=== PATIENT | male | born 1950 | race Caucasian/White ===

== ENCOUNTER 2025-08-11 16:56 | Emergency (ER) | payer SELFPAY ==
[2025-08-11] VITALS (7 sets, daily range): BP systolic 118–154; BP diastolic 71–83; BMI 28.9
[2025-08-11 17:37] LABS: Hematocrit 33.4 % (39.0-52.0); Hemoglobin 12.5 g/dL (13.0-18.0); Mean Corp Hgb Conc. 37.4 g/dL (33.0-37.0); Mean Corpuscular Volume 89.5 fL (80.0-94.0); Nucleated Red Blood Cells % 0 % (-); Platelet Count 372 10^3/uL (130-400); Red Cell Dist. Width 11.8 % (11.5-14.5)
[2025-08-11 17:58] LABS: ALT (SGPT) 26 U/L (0-50); AST (SGOT) 30 U/L (17-59); Albumin 4.2 g/dl (3.5-5.0); Alkaline Phosphatase 69 U/L (38-126); Blood Urea Nitrogen 26 mg/dl (9-20); Calcium 10.0 mg/dl (8.4-10.2); Carbon Dioxide 25 mmol/L (22-30); Chloride 91 mmol/L (98-107); Glucose 167 mg/dl (70-99); Potassium 3.2 mmol/L (3.5-5.1); Sodium 126 mmol/L (135-145); Total Protein 7.0 g/dl (6.3-8.2); eGFR 52.74
[2025-08-11 18:11] LABS: Troponin I 0.061 ng/ml
--- NOTE | 2025-08-11 21:58 | ED.GENMED ---
History of Present Illness
General
Chief Complaint: Male Genito-Urinary Symptoms
Source: patient
Exam Limitations: none
Time Seen by Provider: 08/11/25 19:20
History of Present Illness
History of Present Illness:
Note:
CHIEF COMPLAINT(S)
Recent Vomiting and abdominal bruising.
HISTORY OF PRESENT ILLNESS
The patient is a 74-year-old male with a known history of an abdominal aortic aneurysm and hypertension, presenting after he was noted to have bruising of his lower abdomen. He reports a recent hospitalization where a series of tests, including
multiple imaging studies were conducted, but a clear diagnosis was not established. The patient recalls being prescribed a new medication during this time, which led to fatigue and anorexia for the initial three days. Subsequently today, he noticed
purplish discoloration on his abdomen and sought evaluation at a medical center where he was reassured about the discoloration, though he remains concerned about the potential worsening of his abdominal aortic aneurysm, particularly with episodes of
elevated blood pressure. Despite this, a recent CAT scan report did not mention the aneurysm. There is no record or evidence of recent growth of the aneurysm on imaging.
PAST MEDICAL AND SURGICAL HISTORY
The patient references a known abdominal aortic aneurysm, hypertension
CHRONIC MEDICAL CONDITIONS SIGNIFICANTLY AFFECTING CARE
Abdominal aortic aneurysm
Hypertension
EXTERNAL RECORDS REVIEWED
The patient had a computed tomography scan performed around 10 days prior to this visit, which identified inflammation surrounding the gallbladder. There was no comment on the status of the aorta or any aneurysmal changes in the report.
MEDICATIONS
The patient is on continuous blood thinners.
REVIEW OF SYSTEMS
- Gastrointestinal: Episodes of severe vomiting, pressure in the chest associated with abdominal discomfort, presence of a purplish bruise on the stomach.
- Cardiovascular: Reports of persistent high blood pressure; no new palpable mass felt in the abdominal region during examination.
- Integumentary: Notable purple discoloration/bruise on the lower abdomen.
PHYSICAL EXAM
General: Alert, no acute distress.
Skin: Evidence of ecchymosis on the lower abdomen, particularly on the right side, extending to the suprapubic region; at various stages of healing. Ecchymosis also extends to the penis.
Abdomen: No palpable pulsatile masses. Non-tender during palpation, and no indication of acute abdomen.
Extremities: Warm and well-perfused. No edema
No respiratory distress
Nonfocal neurologic assessment
Awake alert and oriented
PLAN
A repeat scan of the abdomen is warranted to evaluate the current status of the abdominal aorta and any changes that may affect the aneurysm case management. Close monitoring of blood pressure is also necessary given the potential exacerbating
effect on the aneurysm. The patient is advised to return if symptoms of acute pain, changes in consciousness, or further extension of bruising occur.
DIFFERENTIAL DIAGNOSIS
The Differential Diagnosis includes, in no particular order and is not limited to:
1. Abdominal aortic aneurysm rupture or expansion
2. Gastroesophageal reflux disease
3. Peptic ulcer disease
4. Gallbladder disease (e.g., cholecystitis)
5. Pancreatitis
6. Gastritis
7. Bowel obstruction
8. Myocardial infarction
9. Hypertensive emergency
10. Medication side effects
Disposition:
SUMMARY OF ENCOUNTER
The patient is a 74-year-old male presenting with ecchymosis on his lower abdomen. He is currently on apixaban and has a history of an abdominal aortic aneurysm (AAA). The patient reports a recent gastrointestinal illness characterized by severe
vomiting. Imaging from a previous hospital admission shows a hematoma involving the rectus abdominis muscle and right anterior pelvic wall, with no evidence of aneurysm expansion. The patient was offered admission due to being on anticoagulant
therapy; however, he opted for outpatient monitoring, citing a recent hospitalization and a preference for being cared for at home. Laboratory results reveal mild leukocytosis and electrolyte imbalances including hyponatremia and hypokalemia. Mild
troponin bump noted but no chest pain or other ACS signs or symptoms.
DISPOSITION
The patient was discharged with outpatient follow-up.
ASSESSMENT
The ecchymosis is likely due to a rectus sheath hematoma, exacerbated by vomiting and anticoagulation treatment. There is no current evidence of expanding hematoma or aneurysm. Lab results and imaging are consistent with dehydration from recent
vomiting.
PLAN
The plan includes close outpatient monitoring with repeat labs in 3 to 5 days to reassess electrolyte levels. Potassium will be supplemented. The patient is advised to return immediately if symptoms worsen, including abdominal pain or further
expansion of bruising.
INDEPENDENT REVIEW OF LABS AND INTERPRETATION OF TESTS
My independent review of the labs shows mild leukocytosis with a white blood cell count of 11.1, hyponatremia with sodium at 126 mEq/L, hypokalemia with potassium at 3.2 mEq/L, and chloride low at 91 mEq/L.
PATIENT EDUCATION AND COUNSELING
The patient was counseled on the signs and symptoms that would necessitate immediate medical attention, especially changes in abdominal discomfort or expansion of bruising. He was also informed about the need for follow-up labs to ensure
normalization of electrolyte levels.
FOLLOW-UP INSTRUCTIONS
The patient was instructed to follow up with his primary care provider in 3 to 5 days for repeat bloodwork and further evaluation.
MEDICATION RECONCILIATION
Potassium supplementation was initiated to correct hypokalemia.
MEDICAL DECISION MAKING
Chronic conditions affecting care include an abdominal aortic aneurysm and electrolyte imbalances. Potential diagnoses considered were gastrointestinal bleed, electrolyte disturbance due to dehydration, and rectus sheath hematoma due to
anticoagulation therapy.
-Data:
Category 1
Reviewed external records, including recent discharge summary and primary care physician notes.
Laboratory tests reviewed, showing electrolyte imbalances and mild leukocytosis.
Category 3
Consulted with the patient about the management options, emphasizing the importance of monitoring and potential risks of anticoagulation.
DIAGNOSIS
Rectus sheath hematoma (ICD-10-CM S31.820A)
Electrolyte imbalance (ICD-10-CM E87.9)
Hyponatremia (ICD-10-CM E87.1)
Phy Exam
Physical Exam
Physical Exam:
.
Course
Orders/Labs/Results
Orders:
Orders
08/11/25 17:06
Electrocardiogram (*1) Urgent
Reason for Study: Chest Pain
EKG- Treatment ONCE
08/11/25 17:25
Type And Crossmatch [Type+Screen] Urgent
Complete Blood Count/With Diff Urgent
Comprehensive Metabolic Panel Urgent
Troponin I Urgent
08/11/25 19:36
CT Abd/pelvis W Iv Cont Urgent
Comment:
Reason For Exam: abd ecchymosis, h/o AAA
08/11/25 21:57
Potassium Chloride 10% Elixir [KCl Elixir] 40 meq PO NOW STA
Abnormal Lab Results
08/11/25
17:25
WBC 11.6 H 10^3/uL
(4.8-10.8)
RBC 3.73 L 10^6/uL
(4.70-6.10)
Hgb 12.5 L g/dL
(13.0-18.0)
Hct 33.4 L %
(39.0-52.0)
MCH 33.5 H pg
(27.0-31.0)
MCHC 37.4 H g/dL
(33.0-37.0)
Abs Immat Gran (auto) 0.1 H 10^3/uL
(0-0.05)
Absolute Neuts (auto) 7.8 H 10^3/uL
(1.4-6.5)
Absolute Monos (auto) 1.2 H 10^3/uL
(0.1-0.6)
Monocytes % 10.4 H %
(1.7-9.3)
Sodium 126 L mmol/L
(135-145)
Potassium 3.2 L mmol/L
(3.5-5.1)
Chloride 91 L mmol/L
(98-107)
BUN 26 H mg/dl
(9-20)
Creatinine 1.4 H mg/dL
(0.7-1.3)
Glucose 167 H mg/dl
(70-99)
Total Bilirubin 1.7 H mg/dl
(0.2-1.3)
Troponin I 0.061 H* ng/ml
08/11/25 17:25
08/11/25 17:25
Vital Signs
Initial and Last Documented VS:
Initial Vital Signs
Temp Pulse Resp BP Pulse Ox
98.2 F 92 20 118/73 99
08/11/25 16:58 08/11/25 16:58 08/11/25 16:58 08/11/25 16:58 08/11/25 16:58
Last Documented Vital Signs
Temp Pulse Resp BP Pulse Ox
98.2 F 108 13 136/76 98
08/11/25 16:58 08/11/25 22:00 08/11/25 22:00 08/11/25 22:00 08/11/25 21:58
*Pulse Oximetry
SaO2: 98
Oxygen Mode of Delivery: Room air
Patient hypoxic: no
*Critical Care Note
Total Time (30-74mins, 75-104mins- exclusive of procedures): Not Applicable
ED Attending Note
-
Portions of this chart may have been created with voice recognition software.� Occasional wrong word or��sound alike� substitutions may have occurred due to the inherent limitations of voice recognition software.
Discharge Plan
Departure
Patient Disposition: Home (Routine Discharge)
Date of Disposition: 08/11/25
Time of Disposition: 22:20
Patient with high blood pressure during this ER visit?: Yes
Discharge Problem:
Hematoma of abdominal wall, Hyponatremia, Hypokalemia
Instructions: BLOOD PRESSURE, Hematoma
Referrals:
NONE,* [Family Provider, Internal Medicine]
Activity Restrictions/Additional Instructions:
Low potassium, low sodium
Please have your labs repeated in the next 3 to 5 days. Please drink plenty of fluids. Please return immediately for any distention of your abdominal wall, pain in the abdomen, shortness of breath, chest pain, weakness or any other concerns.
Please hold your Eliquis tonight and tomorrow. Please see your doctor tomorrow for follow-up and reevaluation.
Interventions
Interventions:
*Risk Screen - Suicide Last Done: 08/11/25 16:58
*General Assessment Last Done: 08/11/25 19:18
*Neglect/Abuse Screening Last Done: 08/11/25 16:58
*ED COVID-19 Vaccine History Last Done: 08/11/25 19:18
*ED Influenza Vaccine History Last Done: 08/11/25 19:18
[facility] Fall Risk Assessment Tool Last Done: 08/11/25 19:19
ED-Male Genitourinary Assessment Last Done: 08/11/25 19:17
Discharge Date and Time
Print Language: OCCITAN
[2025-08-11] MEDS: KCL ELIXIR 40 MEQ PO (22:18)
== END 2025-08-11 22:57 | disposition home or self-care (01) ==
LOC: EMR 16:56
PROVIDERS: EMERGENCY PHYSICIAN Emergency Medicine
DX: S30.11XA Contusion of abdominal wall, initial encounter (principal); X58.XXXA Exposure to other specified factors, initial encounter; E87.1 Hypo-osmolality and hyponatremia; E87.6 Hypokalemia; D72.829 Elevated white blood cell count, unspecified; I10 Essential (primary) hypertension; I71.43 Infrarenal abdominal aortic aneurysm, without rupture; Z79.01 Long term (current) use of anticoagulants
CPT/HCPCS: 99284; 74177; 80053; 84484; 85025; 86850; 86900; 86901; 93005; Q9967

== ENCOUNTER 2025-08-19 20:19 | Observation (INO) | payer MEDICARE, SELFPAY ==
[2025-08-19] VITALS (12 sets, daily range): BP systolic 99–131; BP diastolic 62–94; BMI 29.3
[2025-08-19 16:57] LABS: Hematocrit 33.4 % (39.0-52.0); Hemoglobin 12.0 g/dL (13.0-18.0); Mean Corp Hgb Conc. 35.9 g/dL (33.0-37.0); Mean Corpuscular Volume 91.5 fL (80.0-94.0); Nucleated Red Blood Cells % 0 % (-); Platelet Count 295 10^3/uL (130-400); Red Cell Dist. Width 12.8 % (11.5-14.5)
[2025-08-19 17:05] LABS: ALT (SGPT) 21 U/L (0-50); AST (SGOT) 27 U/L (17-59); Albumin 3.8 g/dl (3.5-5.0); Alkaline Phosphatase 60 U/L (38-126); Blood Urea Nitrogen 14 mg/dl (9-20); Calcium 9.4 mg/dl (8.4-10.2); Carbon Dioxide 26 mmol/L (22-30); Chloride 96 mmol/L (98-107); Glucose 118 mg/dl (70-99); INR 1.41; PT 17.4 Sec (11.4-14.6); Potassium 3.4 mmol/L (3.5-5.1); Sodium 131 mmol/L (135-145); Total Protein 6.5 g/dl (6.3-8.2); eGFR > 60.00
[2025-08-19 17:26] LABS: Troponin I 0.038 ng/ml
--- NOTE | 2025-08-19 18:28 | ED.GENMED ---
History of Present Illness
<Cordell Mazariegos DO, Resident - Last Filed: 08/19/25 19:55>
General
Chief Complaint: Abnormal Lab Value
Source: patient
Exam Limitations: none
Time Seen by Provider: 08/19/25 17:50
Nursing documentation reviewed up to this point in time: agreed with
History of Present Illness
History of Present Illness:
Lonnie Juarez is a 74M w/ PMHx of 3.0cm AAA, HTN, MDD, HLD, atrial fibrillation and a recent ED visit where he was diagnosed with a rectus abdominus hematoma who is presenting in the setting of an abnormal lab value.
Patient states that over the past couple of weeks he had been feeling dizzy and lightheaded. 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 Patient states that after that
dosage change, he has felt much better. At the instructional technology coach appointment, blood was drawn and sent. Patient was called earlier today and told that he had an elevated 'enzyme' and was told to go to the emergency department. Patient denies any acute
complaints at this time prompting his ED visit. Particular, he denies chest pain, shortness of breath, palpitations, headache, dizziness, lower extremity edema.
Review of Systems
<Cordell Mazariegos DO, Resident - Last Filed: 08/19/25 19:55>
Review of Systems
Allergies reviewed?: Yes
All Other Systems: ROS reviewed and negative except as documented in HPI and ROS
Phy Exam
<Cordell Mazariegos DO, Resident - Last Filed: 08/19/25 19:55>
Physical Exam
Physical Exam:
General: Well appearing male, in no acute distress.
HEENT: Normocephalic, atraumatic, EOMI
CV: regular rhythm, regular rate, AI, no JVD
Respiratory: Clear to auscultation bilaterally, no wheezing, no rales, no rhonchi
Abdomen: soft, nondistended
MSK: no clubbing, no cyanosis, no edema
Neuro: AAO X3, moving all fours
Psych: calm, normal affect
Scores
<Cordell Mazariegos DO, Resident - Last Filed: 08/19/25 19:55>
Heart Failure Risk
Heart Failure Risk Score: Not Applicable
Heart Score for Chest Pain Patients
STEMI patient?: Not applicable
Withdrawal Assessment of Alcohol
Withdrawal Assessment Completed?: Not applicable
Course
<Cordell Mazariegos DO, Resident - Last Filed: 08/19/25 19:55>
Orders/Labs/Results
Orders:
Orders
08/19/25 16:02
Electrocardiogram (*1) Urgent
Reason for Study: Chest Pain
EKG- Treatment ONCE
08/19/25 16:18
Complete Blood Count/With Diff Urgent
Comprehensive Metabolic Panel Urgent
Magnesium Urgent
Comment: ADD ON
Prothrombin Time Urgent
TSH Reflex To Free T4 Urgent
Comment: ADD ON
Troponin I Urgent
08/19/25 18:45
Add On- LAB Urgent
Tests Added?: magnesium, TSH reflex Free T4
Abnormal Lab Results
08/19/25
16:18
RBC 3.65 L 10^6/uL
(4.70-6.10)
Hgb 12.0 L g/dL
(13.0-18.0)
Hct 33.4 L %
(39.0-52.0)
MCH 32.9 H pg
(27.0-31.0)
Absolute Monos (auto) 1.1 H 10^3/uL
(0.1-0.6)
Monocytes % 17.7 H %
(1.7-9.3)
PT 17.4 H Sec
(11.4-14.6)
Sodium 131 L mmol/L
(135-145)
Potassium 3.4 L mmol/L
(3.5-5.1)
Chloride 96 L mmol/L
(98-107)
Glucose 118 H mg/dl
(70-99)
Troponin I 0.038 H* ng/ml
08/19/25 16:18
08/19/25 16:18
Vital Signs
Initial and Last Documented VS:
Initial Vital Signs
Temp Pulse Resp BP Pulse Ox
97.7 F 87 20 99/62 98
08/19/25 15:56 08/19/25 15:56 08/19/25 15:56 08/19/25 15:56 08/19/25 15:56
Last Documented Vital Signs
Temp Pulse Resp BP Pulse Ox
98.3 F 82 18 116/64 99
08/19/25 18:29 08/19/25 19:00 08/19/25 18:29 08/19/25 19:00 08/19/25 18:50
<Parminder Burgess, DO - Last Filed: 08/19/25 18:46>
Orders/Labs/Results
Orders:
Orders
08/19/25 16:02
Electrocardiogram (*1) Urgent
Reason for Study: Chest Pain
EKG- Treatment ONCE
08/19/25 16:18
Complete Blood Count/With Diff Urgent
Comprehensive Metabolic Panel Urgent
Magnesium Urgent
Comment: ADD ON
Prothrombin Time Urgent
TSH Reflex To Free T4 Urgent
Comment: ADD ON
Troponin I Urgent
08/19/25 18:45
Add On- LAB Urgent
Tests Added?: magnesium, TSH reflex Free T4
Abnormal Lab Results
08/19/25
16:18
RBC 3.65 L 10^6/uL
(4.70-6.10)
Hgb 12.0 L g/dL
(13.0-18.0)
Hct 33.4 L %
(39.0-52.0)
MCH 32.9 H pg
(27.0-31.0)
Absolute Monos (auto) 1.1 H 10^3/uL
(0.1-0.6)
Monocytes % 17.7 H %
(1.7-9.3)
PT 17.4 H Sec
(11.4-14.6)
Sodium 131 L mmol/L
(135-145)
Potassium 3.4 L mmol/L
(3.5-5.1)
Chloride 96 L mmol/L
(98-107)
Glucose 118 H mg/dl
(70-99)
Troponin I 0.038 H* ng/ml
08/19/25 16:18
08/19/25 16:18
Vital Signs
Initial and Last Documented VS:
Initial Vital Signs
Temp Pulse Resp BP Pulse Ox
97.7 F 87 20 99/62 98
08/19/25 15:56 08/19/25 15:56 08/19/25 15:56 08/19/25 15:56 08/19/25 15:56
Last Documented Vital Signs
Temp Pulse Resp BP Pulse Ox
98.3 F 82 18 116/64 99
08/19/25 18:29 08/19/25 19:00 08/19/25 18:29 08/19/25 19:00 08/19/25 18:50
<Cordell Mazariegos DO, Resident - Last Filed: 08/19/25 19:55>
MDM/Problems Addressed
Differential Diagnosis Includes:
ACS, nonischemic myocardial injury, valvular disease, arrhythmia
MDM/Problems Addressed:
74M PMHx 3.0cm AAA, HTN, MDD, HLD, atrial fibrillation and a recent ED visit where he was diagnosed with a rectus abdominis hematoma who presented for abnormal troponin as drawn in the outpatient setting. No acute complaints today. Physical exam
unremarkable. Vital signs stable. ECG unchanged from 08/11/2025. Multiple significant PVCs seen on monitor. Cardiology consulted, recommended admission to hospitalist and evaluation in AM. Maintain on home dose beta-meri. Potassium
repleted. Hospitalist notified.
<Cordell Mazariegos DO, Resident - Last Filed: 08/19/25 19:55>
*Pulse Oximetry
SaO2: 98
Oxygen Mode of Delivery: Room air
Patient hypoxic: no
*Critical Care Note
Total Time (30-74mins, 75-104mins- exclusive of procedures): Not Applicable
ED Attending Note
<Codrell Mazariegos DO, Resident - Last Filed: 08/19/25 19:55>
-
Portions of this chart may have been created with voice recognition software.� Occasional wrong word or��sound alike� substitutions may have occurred due to the inherent limitations of voice recognition software.
<Parminder Burgess, - Last Filed: 08/19/25 18:46>
ED Attending Note
Patient seen and examined by attending physician: Yes
I performed a history and physical exam of patient and discussed management with resident, I reviewed resident's note and agree with documented findings and plan of care.: Yes
ED Attending Note:
I have seen and evaluated the patient with a [id number] encounter. I have spoken to the resident and involved in the medical history, the physical exam, medical decision making.
Evaluation and management service: agree unless noted differently below.
Results interpretation: agree unless noted differently below.
Focused HPI: 74-year-old male presenting per request of his PCP. Patient states that outpatient blood work showed an elevated cardiac enzyme. Patient denies chest pain or shortness of breath
Physical exam: Sitting in bed comfortably. Abdominal bruising noted but this has been recently evaluated and described as a abdominal hematoma. Regular rate and rhythm
Medical Decision Making: While seen in bed, patient seems to have significant PVCs. It is concerning that his elevated troponin could be related to this and potentially sustained V. tach.
Discharge Plan
Departure
Patient Disposition: Admit
Date of Disposition: 08/19/25
Time of Disposition: 19:01
Admit to: Telemetry
Admit to doctor: Dr. Sarabia
Presentation/result/management discussed w/ accepting MD/DO: Hospitalist
Patient with high blood pressure during this ER visit?: No
Condition: Fair
Discharge Problem:
Elevated troponin, Asymptomatic PVCs
Prescriptions:
No Action
bupropion HCl [Wellbutrin XL] 150 mg Tablet Extended Release 24 Hr
150 mg PO DAILY
carvedilol [Coreg] 6.25 mg Tablet
6.25 mg PO BID
Theragen Tablet
1 tab PO DAILY
nifedipine [Nifediac CC] 30 mg Tablet Extended Release
30 mg PO DAILY
escitalopram oxalate [Lexapro] 20 mg Tablet
20 mg PO DAILY
rosuvastatin [Crestor] 20 mg Tablet
20 mg PO HS
omega 2-sdr-ifx-fish oil [Fish Oil] 1,000 (120-180) mg Capsule
1 cap PO DAILY
Eliquis 5 mg Tablet
5 mg PO BID
Ozempic 1 mg/dose (4 mg/3 mL) Pen Injector
1 mg SC SA@0800
Interventions
Interventions:
*General Assessment Last Done: 08/19/25 15:56
*Neglect/Abuse Screening Last Done: 08/19/25 15:56
*ED COVID-19 Vaccine History Last Done: 08/19/25 18:30
*ED Influenza Vaccine History Last Done: 08/19/25 18:30
[facility] Risk Assessment Tool Last Done: 08/19/25 18:29
*Risk Screen - Suicide (C-SSRS) Last Done: 08/19/25 18:51
Discharge Date and Time
Print Language: THAI
--- NOTE | 2025-08-19 18:35 | EDRN ---
this [employer] was speaking with this pt and noted the pt to have frequent PVCs and runs of PVCs. ER Dr Burgess was immediately notified of above and a rhythm strip was printed and shown to ER Dr Burgess. On rhythm strip the pt has approx 20 beat run of
monomorphic PVCs. this along with multiple other rhythm strips were printed and scanned into the pts chart. Repeat EKGs were obtained adn shown to Er dr Burgess who is at the pts bedside.
will continue to monitor this pt closely
[2025-08-19 19:03] LABS: Magnesium 1.8 mg/dl (1.6-2.3)
--- NOTE | 2025-08-19 19:10 | HPS.HSE ---
Family Physician
-
Family Physician: FELIX Crawford
Chief Complaint
-
abnormal out patient labs
History of Present Illness
Patient is a 74-year-old male with past medical history significant for hypertension, hyperlipidemia, chronic kidney disease IIIa, paroxysmal atrial fibrillation and depression/anxiety who presented to [facility] ED for evaluation of abnormal out patient
labs. Patient with recent hospitalization at [facility] 2 weeks ago for chest pressure and vomiting with no significant findings. Patient reports that he was at primary care for follow up from hospitalization was sent for lab work yesterday and was called
today to go to ED for evaluation and treatment. Patient denies any symptoms at this time.
Medical History
Past Medical History
Past Medical History: Reports Other
Additional Past Medical History:
hypertension
hyperlipidemia
chronic kidney disease IIIa
paroxysmal atrial fibrillation
depression/anxiety
abdominal aortic aneurysm
Past Surgical History: Reports Other
Additional Past Surgical History:
cardiac cath with PCI
Social History
Tobacco: Former Smoker (43 pack year history, quit 15 years ago)
Alcohol: Occasional
Drug: Marijuana (occasional gummies )
Personal:
Living: Alone
Family History
Family History: Not pertinent
Allergies / Home Medications
Allergies reflects when Allergies were last updated in [employer].
Home Medications with original date entered in [employer]
Allergy/Medication List:
Allergies
Allergy/AdvReac Type Severity Reaction Status Date / Time
Sulfa (Sulfonamide Allergy Unknown Verified 08/19/25 18:27
Antibiotics)
Home Medications
apixaban 5 mg tablet (Eliquis) 5 mg PO BID Blood Clot Prevention/Tx 08/19/25
bupropion HCl 150 mg 24 hr tablet, extended release (Wellbutrin XL) 150 mg PO DAILY Mental Health/Anxiety 08/19/25
carvedilol 6.25 mg tablet (Coreg) 6.25 mg PO BID Heart Disease/Condition 08/19/25
escitalopram oxalate 20 mg tablet (Lexapro) 20 mg PO DAILY Mental Health/Anxiety 08/19/25
nifedipine 30 mg tablet,extended release 30 mg PO DAILY Blood Pressure 08/19/25
omega 2-hpr-gsp-fish oil 1,000 mg (120 mg-180 mg) capsule (Fish Oil) 1 cap PO DAILY Supplement 08/19/25
rosuvastatin 20 mg tablet (Crestor) 20 mg PO HS High Cholesterol 08/19/25
semaglutide 1 mg/dose (4 mg/3 mL) subcutaneous pen injector (Ozempic) 1 mg SC SA@0800 Diabetes 08/19/25
therapeutic multivitamin 1 tab PO DAILY Supplement 08/19/25
Review of Systems
-
History Source: Patient
Constitutional: Reports No Symptoms
EENT: Reports No Symptoms
Respiratory: Reports No Symptoms
Cardiac: Reports No Symptoms
Abdomen/GI: Reports No Symptoms
: Reports No Symptoms
Musculoskeletal: Reports No Symptoms
Skin: Reports No Symptoms
Neurological: Reports No Symptoms
Endocrine: Reports No Symptoms
Hematologic/Lymphatic: Reports No Symptoms
Psych: Reports No Symptoms
Physical Exam
Vital Signs
Vital Signs
Temp Pulse Resp BP Pulse Ox
98.3 F 82 18 116/64 99
08/19/25 18:29 08/19/25 19:00 08/19/25 18:29 08/19/25 19:00 08/19/25 18:50
Physical Exam
General: Well Developed, Well Nourished, No Apparent Distress, Comfortable, Conversant and Obese
HEENT: NormoCephalic, Moist mucous membranes, PERRLA, Nose Appears Normal, Ears Appear Normal and Hearing Impaired
Respiratory: Clear and Non Labored Respirations; No Wheezes, Rales or Rhonchi
Cardiac: S1/S2, Regular Rhythm, Murmur and Peripheral Edema (trace BLLE ); No Rub or Gallop
GI: Soft, Non Tender, Non Distended and Normal Bowel Sounds
Musculoskeletal: No Clubbing and No Cyanosis
Skin: Warm and IV/Catheter Site
Neuro: Awake and AO x 3
Psych: Calm and Intact Judgment/Insight
Laboratory Results
-
08/19/25 16:18
08/19/25 16:18
Laboratory Results
PT 17.4 Sec (11.4-14.6) H 08/19/25 16:18
INR 1.41 08/19/25 16:18
Total Bilirubin 0.8 mg/dl (0.2-1.3) 08/19/25 16:18
AST 27 U/L (17-59) 08/19/25 16:18
ALT 21 U/L (0-50) 08/19/25 16:18
Alkaline Phosphatase 60 U/L (38-126) 08/19/25 16:18
Troponin I 0.038 ng/ml H* 08/19/25 16:18
Data Reviewed
-
Medical Tests (Nuc Med, Echo, EKG etc): Report Reviewed by me (EKG: NORMAL SINUS RHYTHM SEPTAL INFARCT (CITED ON OR BEFORE 11-Aug-2025) ST and T WAVE ABNORMALITY, CONSIDER ANTEROLATERAL ISCHEMIA)
Lab Data: Labs Reviewed by me (Na+ 131, K+ 3.4, trop 0.038)
Impression/Plan
-
IMPRESSION/PLAN:
#abnormal out patient troponin
patient with recent hospitalization at [facility], follow up with primary who had lab work completed and elevated troponin returned
trop 0.038
EKG: NORMAL SINUS RHYTHM
SEPTAL INFARCT (CITED ON OR BEFORE 11-Aug-2025)
ST and T WAVE ABNORMALITY, CONSIDER ANTEROLATERAL ISCHEMIA
- Admit to telemetry for observation
- Consult Cardiology
- plan for stress test Friday
- trend troponin
- ECHO
#hypokalemia
K+ 3.4
- repleted in ED
- monitor BMP
#hypertension
- continue nifedipine
#hyperlipidemia
- continue rosuvastatin
#chronic kidney disease IIIa
BUN 14, creat 1.2, eGFR >60.00
stable
- monitor BMP
#paroxysmal atrial fibrillation
- continue Eliquis and carvedilol
#depression/anxiety
- continue escitalopram
#obesity
- continue semaglutide out patient
- encourage balanced diet and exercise to promote weight loss
#abdominal aortic aneurysm
measure 3.0 cm on recent abdominal CT
Code status: DNR
DVT prophylaxis: Eliquis
--- NOTE | 2025-08-19 19:34 | CON.CAR ---
Consultation
Consultation Request
Date/Time Consultation Requested: 08/19/25
Date/Time Consultation Performed: 08/19/2025
Requesting Provider: Dr. Mazariegos
Performing Provider: Dr. Byrne
Reason for Consultation: Elevated troponin, PVCs
Medical History
-
Chief Complaint: Abnormal troponin
History of Present Illness:
74-year-old male (primarily known to Dr. Goldberg at [facility]) with coronary artery disease status-post PCI (approximately 2 years ago, per patient), paroxysmal atrial fibrillation (on Eliquis), hypertension, hyperlipidemia, diabetes, AAA,
anxiety/depression, obesity, and former smoking history (43 pack years; quit in 2009) referred to the ER for abnormal troponin which was drawn in the outpatient setting. The patient denies any chest pain, shortness of breath, or palpitations.
Cardiology was consulted for frequent PVCs on telemetry. The patient denies any history of heart failure, but states that his primary Patient Service Coordinator was planning to do an outpatient stress test in the near future due to PVCs. The patient mentions
that his dose of nifedipine was decreased from 60 mg to 30 mg 2 days ago due to symptomatic hypotension. Of note, the patient presented to the hospital approximately 2 weeks ago with a rectus hematoma which was thought to be iatrogenic secondary to
an abdominal ultrasound, likely for his AAA.
Past Medical History
Past Medical History: Arrhythmias (PVCs), CAD (PCI 2 years ago), HTN, Hypercholesterolemia and NIDDM
Past Surgical History: Appendectomy and Cardiac (PCI)
Social History
Tobacco: Former Smoker (Quit 2009; 43 pack years)
Alcohol: Occasional
Drug: Marijuana (CBD Gummies)
Personal:
Living: With Family
Employment: Retired
Family History
Family History: Reviewed & Not Pertinent
Allergies / Home Medications
Allergy/AdvReac Type Severity Reaction Status Date / Time
Sulfa (Sulfonamide Allergy Unknown Verified 08/19/25 18:27
Antibiotics)
�Medication �Instructions �Recorded �Confirmed �Type
apixaban 5 mg tablet (Eliquis) 5 mg PO BID Blood Clot 08/19/25 08/19/25 History
Prevention/Tx
bupropion HCl 150 mg 24 hr tablet, 150 mg PO DAILY Mental 08/19/25 08/19/25 History
extended release (Wellbutrin XL) Health/Anxiety
carvedilol 6.25 mg tablet (Coreg) 6.25 mg PO BID Heart 08/19/25 08/19/25 History
Disease/Condition
escitalopram oxalate 20 mg tablet 20 mg PO DAILY Mental 08/19/25 08/19/25 History
(Lexapro) Health/Anxiety
nifedipine 30 mg tablet,extended 30 mg PO DAILY Blood Pressure 08/19/25 08/19/25 History
release
omega 7-vjc-veg-fish oil 1,000 mg 1 cap PO DAILY Supplement 08/19/25 08/19/25 History
(120 mg-180 mg) capsule (Fish Oil)
rosuvastatin 20 mg tablet (Crestor) 20 mg PO HS High Cholesterol 08/19/25 08/19/25 History
semaglutide 1 mg/dose (4 mg/3 mL) 1 mg SC SA@0800 Diabetes 08/19/25 08/19/25 History
subcutaneous pen injector (Ozempic)
therapeutic multivitamin 1 tab PO DAILY Supplement 08/19/25 08/19/25 History
Review of Systems
-
History Source: Patient
All other systems: Negative unless noted
Physical Exam
Vital Signs
Temp Pulse Resp BP Pulse Ox
98.3 F 82 18 116/64 99
08/19/25 18:29 08/19/25 19:00 08/19/25 18:29 08/19/25 19:00 08/19/25 18:50
Lab Results
08/19/25 16:18
08/19/25 16:18
Troponin I 0.038 ng/ml H* 08/19/25 16:18
Physical Exam
General: No Apparent Distress and Comfortable
HEENT: Anicteric
Respiratory: Clear
Cardiac: S1/S2, Irregular Rhythm and Murmur (2/6 systolic murmur)
Breast: N/A
GI: Soft
Rectal: Deferred by Provider
Musculoskeletal: No Edema
Skin: Warm and Dry
Neuro: AO x 3
Psych: Calm
Impression / Plan
-
74-year-old male (primarily known to Dr. Goldberg at [facility]) with coronary artery disease status-post PCI (approximately 2 years ago, per patient), paroxysmal atrial fibrillation (on Eliquis), hypertension, hyperlipidemia, diabetes, AAA,
anxiety/depression, obesity, and former smoking history (43 pack years; quit in 2009) referred to the ER for abnormal troponin which was drawn in the outpatient setting. The patient denies any chest pain, shortness of breath, or palpitations.
Cardiology was consulted for frequent PVCs on telemetry. The patient denies any history of heart failure, but states that his primary Patient Service Coordinator was planning to do an outpatient stress test in the near future due to PVCs. The patient mentions
that his dose of nifedipine was decreased from 60 mg to 30 mg 2 days ago due to symptomatic hypotension. Of note, the patient presented to the hospital approximately 2 weeks ago with a rectus hematoma which was thought to be iatrogenic secondary to
an abdominal ultrasound, likely for his AAA.
Abnormal troponin:
- Etiology unclear at this time; possibly secondary to arrhythmia/frequent PVCs--however, troponin was recently elevated 2 weeks ago when he presented to the hospital.
- Patient denies any anginal symptoms, but EKG shows septal infarct pattern and anterolateral ST/T wave abnormality concerning for ischemia (no previous to compare to).
- Has potential for underlying ischemic substrate for frequent PVCs.
- Patient will undergo an echocardiogram and stress test on Friday.
- Trend troponin to peak.
- Patient will be admitted to Hospitalist service for telemetry monitoring and further workup.
- Try to obtain records from primary Patient Service Coordinator.
Atrial fibrillation/PVCs:
- Possible atrial fibrillation with aberrancy versus myocardial irritation causing frequent PVCs.
- Echocardiogram and stress test on Friday.
- Continue current dose of Carvedilol for now.
- Continue Eliquis for now.
Heart murmur:
- Etiology unclear.
- Echocardiogram on Friday.
Hypertension:
- Continue current doses of carvedilol and nifedipine for now.
Hyperlipidemia:
- Continue rosuvastatin.
- Check lipid panel.
Diabetes:
- On Ozempic at home.
- Check hemoglobin A1c.
- Management as per primary team.
AAA:
- Size unknown, but appears to be currently stable.
Data Reviewed
-
EKG: Report Reviewed by me (Sinus rhythm at 83 bpm with septal infarct pattern and anterolateral ST/T wave abnormality concerning for ischemia.)
Labs: Labs Reviewed by me and Discussed with Physician (ED team, Hospitalist team)
[2025-08-19] MEDS: KCL 20 MEQ PO ×2 (20:28)
--- NOTE | 2025-08-19 20:33 | W.PN.UPDATE ---
Update Note
Progress Note Update
Attending note
Patient seen independently
74-year-old man with past medical history of:
hypertension,
hyperlipidemia,
chronic kidney disease IIIa,
paroxysmal atrial fibrillation
depression/anxiety
presented with abnormal out patient labs, an elevated troponin. Recently hospitalized at [facility] 2 weeks ago for chest pressure and vomiting with no significant findings. He was at primary care for follow up from hospitalization was sent for lab work
yesterday and had elevated troponin. Patient denies any symptoms at this time. Seen by cardiology at the bedside here.
Past Medical History
hypertension
hyperlipidemia
chronic kidney disease IIIa
paroxysmal atrial fibrillation
depression/anxiety
abdominal aortic aneurysm
cardiac cath with PCI
Physical Exam
General: Well Developed, Well Nourished, No Apparent Distress,
HEENT: NormoCephalic, Moist mucous membranes,
Respiratory: Clear and Non Labored Respirations;
Cardiac: S1/S2, Regular Rhythm, Murmur and Peripheral Edema (trace BLLE )
GI: Soft, Non Tender,
Psych: Calm
IMPRESSION/PLAN:
1. abnormal out patient troponin
- Consulted Cardiology. Highlights of their recommendations:
'Troponins
- Etiology unclear at this time; possibly secondary to arrhythmia/frequent PVCs--however, troponin was recently elevated 2 weeks ago when he presented to the hospital.
- Patient denies any anginal symptoms, but EKG shows septal infarct pattern and anterolateral ST/T wave abnormality concerning for ischemia (no previous to compare to).
- Has potential for underlying ischemic substrate for frequent PVCs.
- Patient will undergo an echocardiogram and stress test on Friday.
- Trend troponin to peak.
- Patient will be admitted to Hospitalist service for telemetry monitoring and further workup.
- Try to obtain records from primary Technical Adjuster.
Atrial fibrillation/PVCs:
- Possible atrial fibrillation with aberrancy versus myocardial irritation causing frequent PVCs.
- Echocardiogram and stress test on Friday.
- Continue current dose of Carvedilol for now.
- Continue Eliquis for now.
Heart murmur:
- Etiology unclear.
- Echocardiogram on Friday.
Hypertension:
- Continue current doses of carvedilol and nifedipine for now.'
Will follow the cardiology plan
2. hypokalemia
- repleted in ED
- monitor BMP
Please see [employer] note for full details regarding
hypertension
hyperlipidemia
chronic kidney disease IIIa
paroxysmal atrial fibrillation
depression/anxiety
obesity
abdominal aortic aneurysm
Code status: DNR
DVT prophylaxis: Eliquis
[2025-08-20] VITALS (8 sets, daily range): BP systolic 91–143; BP diastolic 53–78; BMI 28.5
[2025-08-20 01:36] LABS: Troponin I 0.041 ng/ml
[2025-08-20] MEDS: ELIQUIS 5 MG PO ×3 (01:39→20:20)
[2025-08-20] MEDS: CRESTOR 20 MG PO ×2 (01:39→20:20)
[2025-08-20] MEDS: COREG 6.25 MG PO ×3 (01:40→20:20)
--- NOTE | 2025-08-20 01:57 | PTCARENOTE ---
Pt arrives to floor via stretcher from the ED. Pt AAOx3, [place]. Pt independent at baseline, pt able to ambulate from stretcher into room without difficulty. HR in the 70's in NSR with PVC's on the monitor. + murmer. POX 96% on RA, lungs dec at bases.
+ bowel, round abd. Pt ambulatory to bathroom with assist as needed. Left Rt lower abd bruising noted, see wound care documentation. Pale skin. Left AC int capped. Pt denies any complaints at this time. Call wing in reach. Will continue to monitor.
[2025-08-20 07:39] LABS: Troponin I 0.039 ng/ml
[2025-08-20 07:46] LABS: Blood Urea Nitrogen 11 mg/dl (9-20); Calcium 9.5 mg/dl (8.4-10.2); Carbon Dioxide 28 mmol/L (22-30); Chloride 101 mmol/L (98-107); Estimated Creatinine Clearance 59 ml/min; Glucose 115 mg/dl (70-99); HDL Cholesterol 55 mg/dl; LDL Cholesterol, Calculated 61 mg/dl; Potassium 3.7 mmol/L (3.5-5.1); Sodium 134 mmol/L (135-145); Very Low Density Lipoprotein 19 mg/dl (0-30); eGFR > 60.00
--- NOTE | 2025-08-20 08:22 | W.PN.CD ---
Today's Communication / Plan
-
- Echocardiogram and stress test ordered for Friday.
Impression / Plan
-
74-year-old male (primarily known to Dr. Goldberg at [facility]) with coronary artery disease status-post PCI (approximately 2 years ago, per patient), paroxysmal atrial fibrillation (on Eliquis), hypertension, hyperlipidemia, diabetes, AAA,
anxiety/depression, obesity, and former smoking history (43 pack years; quit in 2009) referred to the ER for abnormal troponin which was drawn in the outpatient setting. The patient denies any chest pain, shortness of breath, or palpitations.
Cardiology was consulted for frequent PVCs on telemetry. The patient denies any history of heart failure, but states that his primary Financial Aid Advisor was planning to do an outpatient stress test in the near future due to PVCs. The patient mentions
that his dose of nifedipine was decreased from 60 mg to 30 mg 2 days ago due to symptomatic hypotension. Of note, the patient presented to the hospital approximately 2 weeks ago with a rectus hematoma which was thought to be iatrogenic secondary to
an abdominal ultrasound, likely for his AAA.
Abnormal troponin:
- Etiology remains unclear at this time; possibly secondary to arrhythmia/frequent PVCs--however, troponin was recently elevated 2 weeks ago when he presented to the hospital.
- Patient denies any anginal symptoms, but EKG shows septal infarct pattern and anterolateral ST/T wave abnormality concerning for ischemia (no previous to compare to).
- Has potential for underlying ischemic substrate for frequent PVCs.
- Patient will undergo an echocardiogram and stress test on Friday.
- Troponin now peaked at 0.041.
- Patient will be admitted to Hospitalist service for telemetry monitoring and further workup.
- Try to obtain records from primary Financial Aid Advisor.
Atrial fibrillation/PVCs:
- Possible atrial fibrillation with aberrancy versus myocardial irritation (underlying ischemic substrate, given known CAD) causing frequent PVCs.
- Echocardiogram and stress test ordered for Friday.
- Continue current dose of Carvedilol.
- Continue Eliquis.
Heart murmur:
- Etiology unclear.
- Echocardiogram ordered for Friday.
Hypertension:
- Continue current doses of carvedilol and nifedipine.
Hyperlipidemia:
- Continue current dose of rosuvastatin.
- LDL 61; close to goal of less than 55.
Diabetes:
- On Ozempic at home.
- hemoglobin A1c pending.
- Management as per primary team.
AAA:
- Size unknown, but appears to be currently stable.
Physical Exam
Vital Signs/Labs
Vital Signs
Temp Pulse Resp BP Pulse Ox
98 F 79 12 121/70 95
08/20/25 07:00 08/20/25 07:00 08/20/25 07:00 08/20/25 07:00 08/20/25 07:00
08/19/25 08/20/25 08/21/25
06:59 06:59 06:59
Actual Weight 87.543 kg
08/19/25 16:18
08/20/25 06:49
PT 17.4 Sec (11.4-14.6) H 08/19/25 16:18
INR 1.41 08/19/25 16:18
Magnesium 1.8 mg/dl (1.6-2.3) 08/19/25 16:18
Triglycerides 96 mg/dl (10-149) 08/20/25 06:49
LDL Cholesterol, Calc 61 mg/dl 08/20/25 06:49
VLDL Cholesterol, Calc 19 mg/dl (0-30) 08/20/25 06:49
HDL Cholesterol 55 mg/dl 08/20/25 06:49
LAB Results
08/19/25 08/20/25 08/20/25
16:18 00:58 01:30
Troponin I 0.038 H* 0.041 H* Cancelled
08/20/25 08/20/25 08/20/25
03:34 06:34 06:49
Troponin I Cancelled Cancelled 0.039 H*
Physical Exam
Constitutional: No acute distress and Comfortable
EENT: Anicteric
Cardiovascular: Pedal edema is absent, Rhythm/rate is irregular, Systolic murmur present (3/6) and S1S2 is normal
Respiratory: Respiratory effort normal and Lungs clear to auscul.
GI: Soft
Neuro/Psych: AO x 3
Other: Skin (Warm, dry, intact)
Data Reviewed
-
Date of Service: August 20, 2025
EKG: Tracing Personally Visualized and interpreted (Telemetry: A-fib, PVCs)
Medical Tests (PFT, Pathology etc): Discussed with Nurse and Discussed with Patient
Labs: Labs Reviewed by me
[2025-08-20] MEDS: PROCARDIA XL (EXTENDED RELEASE) 30 MG PO (08:42)
[2025-08-20] MEDS: WELLBUTRIN XL (24 hour extended release) 150 MG PO (08:42)
--- NOTE | 2025-08-20 10:19 | CM ---
wardrobe manager reviewed patient's chart and met with patient and patient [facility], patient is independent with adl's and ambulation, no dme, patient drives, Patient to return to his apartment at [facility] when stable.
PCP: Endy Brunett
Pharmacy: [facility]
[2025-08-20] MEDS: LEXAPRO 20 MG PO (11:24)
[2025-08-20 12:15] LABS: Glycohemoglobin (HgbA1c) 6.1 % (4.0-5.9)
--- NOTE | 2025-08-20 13:48 | W.PN.HOSP.TC ---
Today's Communication/Plan
-
Monitor vital signs see plan
Cardiology following
Plan for stress test Friday
Echo
Assessment / Plan
Assessment / Plan
General: Well Developed, Well Nourished, No Apparent Distress, Comfortable, Conversant and Obese
HEENT: NormoCephalic, Moist mucous membranes, PERRLA, Nose Appears Normal, Ears Appear Normal and Hearing Impaired
Respiratory: Clear and Non Labored Respirations; No Wheezes, Rales or Rhonchi
Cardiac: S1/S2, Regular Rhythm, Murmur and Peripheral Edema (trace BLLE ); No Rub or Gallop
GI: Soft, Non Tender, Non Distended and Normal Bowel Sounds
Neuro: Awake and AO x 3
Psych: Calm and Intact Judgment/Insight
Abnormal troponin
Etiology unclear at this time however given his previous cardiac history
cardiology following
- plan for stress test Friday
- trend troponin
- ECHO pending
#hypokalemia
#hypertension
- continue nifedipine
#hyperlipidemia
- continue rosuvastatin
#chronic kidney disease IIIa
BUN 14, creat 1.2, eGFR >60.00
stable
- monitor BMP
#paroxysmal atrial fibrillation
- continue Eliquis and carvedilol
#depression/anxiety
- continue escitalopram
#obesity
- continue semaglutide out patient
- encourage balanced diet and exercise to promote weight loss
#abdominal aortic aneurysm
measure 3.0 cm on recent abdominal CT
Code status: DNR
DVT prophylaxis: Eliquis
Anticipated Discharge: > 48 hours
Subjective/Interval History
-
Date of Service: August 20, 2025
denies pain
Objective Data
-
Labs:
Laboratory Results
08/20/25
06:49
Sodium 134 L
Potassium 3.7
Chloride 101
Carbon Dioxide 28
BUN 11
Creatinine 1.1
Glucose 115 H
Calcium 9.5
Vital Signs:
Vital Signs
Temp Pulse Resp BP Pulse Ox
98.1 F 79 14 91/53 100
08/20/25 11:00 08/20/25 11:00 08/20/25 11:00 08/20/25 11:00 08/20/25 11:00
I&O
08/19/25 08/20/25 08/21/25
06:59 06:59 06:59
Intake Total 480 / 480 240 / 240
Balance 480 / 480 240 / 240
[2025-08-21 03:48] VITALS: BP 123/72
--- NOTE | 2025-08-21 05:52 | PTCARENOTE ---
no chest pain overnight-vitals wnl pt eagerly anticipating stress test/echo
[2025-08-21 07:29] LABS: Blood Urea Nitrogen 11 mg/dl (9-20); Calcium 9.0 mg/dl (8.4-10.2); Carbon Dioxide 29 mmol/L (22-30); Chloride 102 mmol/L (98-107); Estimated Creatinine Clearance 59 ml/min; Glucose 106 mg/dl (70-99); Potassium 3.8 mmol/L (3.5-5.1); Sodium 135 mmol/L (135-145); eGFR > 60.00
[2025-08-21] MEDS: WELLBUTRIN XL (24 hour extended release) 150 MG PO (07:32)
[2025-08-21] MEDS: LEXAPRO 20 MG PO (07:32)
[2025-08-21] MEDS: PROCARDIA XL (EXTENDED RELEASE) 30 MG PO (07:32)
[2025-08-21] MEDS: COREG 6.25 MG PO ×2 (07:32→20:05)
[2025-08-21] MEDS: ELIQUIS 5 MG PO ×2 (07:32→20:05)
[2025-08-21 07:45] VITALS: BP 119/73
[2025-08-21 07:50] LABS: Hematocrit 31.5 % (39.0-52.0); Hemoglobin 10.8 g/dL (13.0-18.0); Mean Corp Hgb Conc. 34.3 g/dL (33.0-37.0); Mean Corpuscular Volume 94.6 fL (80.0-94.0); Nucleated Red Blood Cells % 0 % (-); Platelet Count 230 10^3/uL (130-400); Red Cell Dist. Width 12.8 % (11.5-14.5)
--- NOTE | 2025-08-21 11:00 | W.PN.CD ---
Today's Communication / Plan
-
- Echocardiogram and stress test tomorrow; NPO after midnight.
Impression / Plan
-
74-year-old male (primarily known to Dr. Goldberg at [facility]) with coronary artery disease status-post PCI (approximately 2 years ago, per patient), paroxysmal atrial fibrillation (on Eliquis), hypertension, hyperlipidemia, diabetes, AAA,
anxiety/depression, obesity, and former smoking history (43 pack years; quit in 2009) referred to the ER for abnormal troponin which was drawn in the outpatient setting. The patient denies any chest pain, shortness of breath, or palpitations.
Cardiology was consulted for frequent PVCs on telemetry. The patient denies any history of heart failure, but states that his primary Seo Engineer was planning to do an outpatient stress test in the near future due to PVCs. The patient mentions
that his dose of nifedipine was decreased from 60 mg to 30 mg 2 days ago due to symptomatic hypotension. Of note, the patient presented to the hospital approximately 2 weeks ago with a rectus hematoma which was thought to be iatrogenic secondary to
an abdominal ultrasound, likely for his AAA.
Abnormal troponin:
- Etiology remains unclear at this time; possibly secondary to arrhythmia/frequent PVCs--however, troponin was recently elevated 2 weeks ago when he presented to the hospital.
- Patient denies any anginal symptoms, but EKG shows septal infarct pattern and anterolateral ST/T wave abnormality concerning for ischemia (no previous to compare to).
- Has potential for underlying ischemic substrate for frequent PVCs.
- Patient will undergo an echocardiogram and stress test tomorrow.
- Troponin now peaked at 0.041.
- Try to obtain records from primary Seo Engineer.
Atrial fibrillation/PVCs:
- Possible atrial fibrillation with aberrancy versus myocardial irritation (underlying ischemic substrate, given known CAD) causing frequent PVCs.
- Echocardiogram and stress test tomorrow; NPO after midnight.
- Continue current dose of Carvedilol.
- Continue Eliquis.
Heart murmur:
- Etiology unclear.
- Echocardiogram tomorrow.
Hypertension:
-Controlled.
- Continue current doses of carvedilol and nifedipine.
Hyperlipidemia:
- Continue current dose of rosuvastatin.
- LDL 61; close to goal of less than 55.
Diabetes:
- On Ozempic at home.
- Hemoglobin A1c 6.1%.
- Management as per primary team.
AAA:
- Size unknown, but appears to be currently stable.
Physical Exam
Vital Signs/Labs
Vital Signs
Temp Pulse Resp BP Pulse Ox
98.0 F 88 16 119/73 96
08/21/25 07:45 08/21/25 07:45 08/21/25 07:45 08/21/25 07:45 08/21/25 07:45
08/20/25 08/21/25 08/22/25
06:59 06:59 06:59
Actual Weight 87.543 kg
08/21/25 06:11
08/21/25 06:11
PT 17.4 Sec (11.4-14.6) H 08/19/25 16:18
INR 1.41 08/19/25 16:18
Magnesium 1.8 mg/dl (1.6-2.3) 08/19/25 16:18
Triglycerides 96 mg/dl (10-149) 08/20/25 06:49
LDL Cholesterol, Calc 61 mg/dl 08/20/25 06:49
VLDL Cholesterol, Calc 19 mg/dl (0-30) 08/20/25 06:49
HDL Cholesterol 55 mg/dl 08/20/25 06:49
LAB Results
08/19/25 08/20/25 08/20/25
16:18 00:58 01:30
Troponin I 0.038 H* 0.041 H* Cancelled
08/20/25 08/20/25 08/20/25
03:34 06:34 06:49
Troponin I Cancelled Cancelled 0.039 H*
Physical Exam
Constitutional: No acute distress and Comfortable
EENT: Anicteric
Cardiovascular: Rhythm & rate is regular (Ectopy present), Pedal edema is absent, Systolic murmur present (2-3/6) and S1S2 is normal
Respiratory: Respiratory effort normal
GI: Soft
Neuro/Psych: AO x 3
Other: Skin
Data Reviewed
-
Date of Service: August 21, 2025
EKG: Tracing Personally Visualized and interpreted (Telemetry: Sinus rhythm, PVCs)
Echo: Ordered by me
Labs: Labs Reviewed by me
--- NOTE | 2025-08-21 11:13 | W.PN.HOSP.TC ---
Today's Communication/Plan
-
Monitor vitals
See plan
Stress test tomorrow
Echo
Cardiology following
Assessment / Plan
Assessment / Plan
General: Well Developed, Well Nourished, No Apparent Distress, Comfortable, Conversant and Obese
HEENT: NormoCephalic, Moist mucous membranes, PERRLA, Nose Appears Normal, Ears Appear Normal and Hearing Impaired
Respiratory: Clear and Non Labored Respirations; No Wheezes, Rales or Rhonchi
Cardiac: S1/S2, Regular Rhythm, Murmur and Peripheral Edema (trace BLLE ); No Rub or Gallop
GI: Soft, Non Tender, Non Distended and Normal Bowel Sounds
Neuro: Awake and AO x 3
Psych: Calm and Intact Judgment/Insight
Abnormal troponin
Etiology unclear at this time however given his previous cardiac history
cardiology following
- plan for stress test Friday
- trend peaked 0.041
- ECHO pending
#hypokalemia
#hypertension
- continue nifedipine
#hyperlipidemia
- continue rosuvastatin
#chronic kidney disease IIIa
stable
- monitor BMP
#paroxysmal atrial fibrillation
- continue Eliquis and carvedilol
#depression/anxiety
- continue escitalopram
#obesity
- continue semaglutide out patient
- encourage balanced diet and exercise to promote weight loss
#abdominal aortic aneurysm
measure 3.0 cm on recent abdominal CT
Code status: DNR
DVT prophylaxis: Eliquis
Anticipated Discharge: 24 - 48 hours
Subjective/Interval History
-
Date of Service: August 21, 2025
Denies pain
Objective Data
-
Labs:
Laboratory Results
08/21/25
06:11
WBC 6.0
Hgb 10.8 L
Hct 31.5 L
Plt Count 230 D
Sodium 135
Potassium 3.8
Chloride 102
Carbon Dioxide 29
BUN 11
Creatinine 1.1
Glucose 106 H
Calcium 9.0
Vital Signs:
Vital Signs
Temp Pulse Resp BP Pulse Ox
98.0 F 88 16 119/73 96
08/21/25 07:45 08/21/25 07:45 08/21/25 07:45 08/21/25 07:45 08/21/25 07:45
I&O
08/20/25 08/21/25 08/22/25
06:59 06:59 06:59
Intake Total 480 / 480 480 / 480
Balance 480 / 480 480 / 480
[2025-08-21 11:17] VITALS: BP 96/55
[2025-08-21 15:00] VITALS: BP 106/59
[2025-08-21 19:51] VITALS: BP 117/85
[2025-08-21] MEDS: CRESTOR 20 MG PO (20:05)
[2025-08-21 23:16] VITALS: BP 131/75
[2025-08-22 03:35] VITALS: BP 119/72
[2025-08-22 07:00] VITALS: BP 124/81
[2025-08-22] MEDS: ELIQUIS 5 MG PO (07:20)
[2025-08-22] MEDS: WELLBUTRIN XL (24 hour extended release) 150 MG PO (07:20)
[2025-08-22] MEDS: LEXAPRO 20 MG PO (07:20)
[2025-08-22] MEDS: PROCARDIA XL (EXTENDED RELEASE) 30 MG PO (07:20)
[2025-08-22] MEDS: COREG 6.25 MG PO (07:20)
--- NOTE | 2025-08-22 07:34 | W.PN.HOSP.TC ---
Today's Communication/Plan
-
discharge
Assessment / Plan
Assessment / Plan
General: Well Developed, Well Nourished, No Apparent Distress, Comfortable, Conversant and Obese
HEENT: NormoCephalic, Moist mucous membranes, PERRLA, Nose Appears Normal, Ears Appear Normal and Hearing Impaired
Respiratory: Clear and Non Labored Respirations; No Wheezes, Rales or Rhonchi
Cardiac: S1/S2, Regular Rhythm, Murmur and Peripheral Edema (trace BLLE ); No Rub or Gallop
GI: Soft, Non Tender, Non Distended and Normal Bowel Sounds
Neuro: Awake and AO x 3
Psych: Calm and Intact Judgment/Insight
Abnormal troponin
Etiology unclear at this time however given his previous cardiac history
cardiology eval appreciated ECHO and Stress test wnl
- troponin trended to peak 0.041
#hypokalemia
resolved
#hypertension
- continue nifedipine
#hyperlipidemia
- continue rosuvastatin
#chronic kidney disease IIIa
stable
#paroxysmal atrial fibrillation
- continue Eliquis and carvedilol
#depression/anxiety
- continue escitalopram
#obesity
- continue semaglutide out patient
- encourage balanced diet and exercise to promote weight loss
#abdominal aortic aneurysm
measure 3.0 cm on recent abdominal CT
Code status: DNR
DVT prophylaxis: Eliquis
Medically stable for discharge home with outpatient follow up recommendations.
Total Time Preparing Discharge ___40____ minutes including examination of the patient, summary of the hospital stay, instructions for continuing care to all relevant caregivers; and preparation of discharge records, prescriptions, and referral
forms if necessary.
Anticipated Discharge: Today
Subjective/Interval History
-
Date of Service: August 22, 2025
Seen and examined at bedside, in no acute distress, resting comfortably in bed. Overall reports feeling well. Denies new acute issues. Eager to go home.
Objective Data
-
Labs:
Laboratory Results
08/22/25
06:00
WBC Pending
Hgb Pending
Hct Pending
Plt Count Pending
Sodium Pending
Potassium Pending
Chloride Pending
Carbon Dioxide Pending
BUN Pending
Creatinine Pending
Glucose Pending
Calcium Pending
Vital Signs:
Vital Signs
Temp Pulse Resp BP Pulse Ox
97.7 F 88 18 124/81 98
08/22/25 03:35 08/22/25 07:20 08/22/25 03:35 08/22/25 07:20 08/22/25 03:35
I&O
08/21/25 08/22/25 08/23/25
06:59 06:59 06:59
Intake Total 480 / 480 240 / 240
Balance 480 / 480 240 / 240
--- NOTE | 2025-08-22 08:40 | W.PN.CD ---
Today's Communication / Plan
-
echo and nuclear stress today
dispo pending results
Impression / Plan
-
74-year-old male (primarily known to Dr. Goldberg at [facility]) with coronary artery disease status-post PCI (approximately 2 years ago, per patient), paroxysmal atrial fibrillation (on Eliquis), hypertension, hyperlipidemia, diabetes, AAA,
anxiety/depression, obesity, and former smoking history (43 pack years; quit in 2009) referred to the ER for abnormal troponin which was drawn in the outpatient setting. The patient denies any chest pain, shortness of breath, or palpitations.
Cardiology was consulted for frequent PVCs on telemetry. The patient denies any history of heart failure, but states that his primary Reading Assistant was planning to do an outpatient stress test in the near future due to PVCs. The patient mentions
that his dose of nifedipine was decreased from 60 mg to 30 mg 2 days ago due to symptomatic hypotension. Of note, the patient presented to the hospital approximately 2 weeks ago with a rectus hematoma which was thought to be iatrogenic secondary to
an abdominal ultrasound, likely for his AAA.
Abnormal troponin:
- Etiology remains unclear at this time; possibly secondary to arrhythmia/frequent PVCs--however, troponin was recently elevated 2 weeks ago when he presented to the hospital.
- Patient denies any anginal symptoms, but EKG shows septal infarct pattern and anterolateral ST/T wave abnormality concerning for ischemia (no previous to compare to).
- Has potential for underlying ischemic substrate for frequent PVCs.
- Patient will undergo an echocardiogram and stress test today
- Troponin now peaked at 0.041.
Atrial fibrillation/PVCs:
- Possible atrial fibrillation with aberrancy versus myocardial irritation (underlying ischemic substrate, given known CAD) causing frequent PVCs.
- Echocardiogram and stress test today
- Continue current dose of Carvedilol.
- Continue Eliquis.
Heart murmur:
- Etiology unclear.
- Echocardiogram tomorrow.
Hypertension:
-Controlled.
- Continue current doses of carvedilol and nifedipine.
Hyperlipidemia:
- Continue current dose of rosuvastatin.
- LDL 61; close to goal of less than 55.
Diabetes:
- On Ozempic at home.
- Hemoglobin A1c 6.1%.
- Management as per primary team.
AAA:
- recent u/s at another hospital
Physical Exam
Vital Signs/Labs
Vital Signs
Temp Pulse Resp BP Pulse Ox
98 F 88 12 124/81 98
08/22/25 07:00 08/22/25 07:20 08/22/25 07:00 08/22/25 07:20 08/22/25 07:00
PT 17.4 Sec (11.4-14.6) H 08/19/25 16:18
INR 1.41 08/19/25 16:18
Magnesium 1.8 mg/dl (1.6-2.3) 08/19/25 16:18
Triglycerides 96 mg/dl (10-149) 08/20/25 06:49
LDL Cholesterol, Calc 61 mg/dl 08/20/25 06:49
VLDL Cholesterol, Calc 19 mg/dl (0-30) 08/20/25 06:49
HDL Cholesterol 55 mg/dl 08/20/25 06:49
LAB Results
08/19/25 08/20/25 08/20/25
16:18 00:58 01:30
Troponin I 0.038 H* 0.041 H* Cancelled
08/20/25 08/20/25 08/20/25
03:34 06:34 06:49
Troponin I Cancelled Cancelled 0.039 H*
Physical Exam
Constitutional: No acute distress and Comfortable
EENT: Moist mucous membranes
Cardiovascular: Rhythm & rate is regular, Pedal edema is absent, JVD pressure is normal and Systolic murmur present
Respiratory: Respiratory effort normal and Lungs clear to auscul.
Neuro/Psych: AO x 3
Data Reviewed
-
Date of Service: August 22, 2025
EKG: Other (Tele: , GEORGE's)
Labs: Labs Reviewed by me
[2025-08-22] MEDS: LEXISCAN 0.4 MG IV (09:55)
[2025-08-22] MEDS: AMINOPHYLLINE 75 MG IV (10:07)
--- NOTE | 2025-08-22 11:07 | PTCARENOTE ---
Pt tolerated Lexiscan Stress test well, report called to floor. Refer to Cardiac Monitoring Record for complete details and assessment. Pt under camera at present.
[2025-08-22 11:30] VITALS: BP 122/67
--- NOTE | 2025-08-22 14:49 | CM ---
Md entered order for discharge today.
Spoke with patient in room.
He will be dc to [facility] live at [facility].
Offered VN he declined need.
He said he will [place] an [employer] [place]
Remains under observation.
PLAN Home no needs
[2025-08-22 15:00] VITALS: BP 108/57
--- NOTE | 2025-08-22 16:29 | W.DCSUMMARY ---
Discharge Summary
Discharge Data
Date of Admission: 08/19/25
Date of Discharge: 08/22/25
-
Pending Results: No
Hospital Course
74M hx Obesity AAA HTN HLD CKDIII pAfib Eliquis Anxiety/Depression presented for evaluation abnormal troponin elevation noted in outpt labs. Chest pain free. Cardiology eval appreciated ECHO and Stress test wnl. Troponin trended to peak 0.041.
Etiology troponin elevation remains unclear, suspect non-ischemic myocardial injury. Otherwise medically stable, ambulating without need for assist device, patient was discharged home with outpatient follow up recommendations.
Discharge Plan
-
Patient Disposition: Home (Routine Discharge)
Discharge Diagnosis/Procedures: Abnormal Troponin elevation, chest pain free, Normal ECHO and stress test
Condition: Fair
Diet: Low Cholesterol and 2 Gram Sodium
Activity: As tolerated
Driving Restrictions: As prior to admission
Bathing Restrictions: None
Activity Restrictions/Additional Instructions:
Follow up with primary care provider in 1 week of discharge and [employer] Supervisor in 1-2 weeks of discharge.
Referrals:
Endy Burnett CRNP [Family Provider, General] - in one week
Prescriptions:
Continued
bupropion HCl [Wellbutrin XL] 150 mg Tablet Extended Release 24 Hr
150 mg PO DAILY
carvedilol [Coreg] 6.25 mg Tablet
6.25 mg PO BID
therapeutic multivitamin Tablet
1 tab PO DAILY
nifedipine 30 mg Tablet Extended Release
30 mg PO DAILY
escitalopram oxalate [Lexapro] 20 mg Tablet
20 mg PO DAILY
rosuvastatin [Crestor] 20 mg Tablet
20 mg PO HS
omega 2-lqb-rvb-fish oil [Fish Oil] 1,000 (120-180) mg Capsule
1 cap PO DAILY
Eliquis 5 mg Tablet
5 mg PO BID
Ozempic 1 mg/dose (4 mg/3 mL) Pen Injector
1 mg SC SA@0800
Discharge Orders:
Discharge Patient (As Directed); Ordered 08/22/25
Ordered By: Arnold Lopez
Discharge Date and Time
Discharge Date/Time: 08/22/25 15:56
Print Language: HEBREW
== END 2025-08-22 15:56 | disposition home or self-care (01) ==
LOC: 1 ACUTE 20:19
PROVIDERS: Internal Medicine; Nurse Practitioner Family; Registered Nurse; Student in an Organized Health Care Education/Training Program; ADMITTING PHYSICIAN Internal Medicine; ATTENDING PHYSICIAN Internal Medicine; CONSULT PHYSICIAN Internal Medicine; EMERGENCY PHYSICIAN Student in an Organized Health Care Education/Training Program; FAMILY PHYSICIAN Nurse Practitioner Gerontology
DX: R79.89 Other specified abnormal findings of blood chemistry (principal); E78.00 Pure hypercholesterolemia, unspecified; I12.9 Hypertensive chronic kidney disease with stage 1 through stage 4 chronic kidney disease, or unspecified chronic kidney disease; N18.31 Chronic kidney disease, stage 3a; I48.0 Paroxysmal atrial fibrillation; F32.A Depression, unspecified; F41.9 Anxiety disorder, unspecified; I71.40 Abdominal aortic aneurysm, without rupture, unspecified; E87.6 Hypokalemia; E66.9 Obesity, unspecified; Z66 Do not resuscitate; I25.10 Atherosclerotic heart disease of native coronary artery without angina pectoris; I49.3 Ventricular premature depolarization; E11.22 Type 2 diabetes mellitus with diabetic chronic kidney disease; R01.1 Cardiac murmur, unspecified; H91.93 Unspecified hearing loss, bilateral; Z68.28 Body mass index [BMI] 28.0-28.9, adult; Z79.01 Long term (current) use of anticoagulants; Z79.85 Long-term (current) use of injectable non-insulin antidiabetic drugs; Z79.899 Other long term (current) drug therapy; Z87.891 Personal history of nicotine dependence; Z79.84 Long term (current) use of oral hypoglycemic drugs; Z95.5 Presence of coronary angioplasty implant and graft
CPT/HCPCS: 78452; 80048; 80053; 80061; 83036; 83735; 84443; 84484; 85025; 85610; 93005; 93017; 93306; 99284; A9500; G0378; J2785